=== PATIENT | male | born 1935 | race Caucasian/White ===

== ENCOUNTER 2017-06-15 10:06 | Inpatient (IN) | payer MEDICARE ==
[~2017-06-15] VITALS: Ht 167.6 cm; Wt 104.8 kg
[2017-06-15] MEDS ORDERED: AMLODIPINE5 MG PO (10:20)
[2017-06-15] MEDS ORDERED: ATENOLOL50 MG PO (10:21)
[2017-06-15] MEDS ORDERED: ASPIRIN81 MG PO (10:21)
[2017-06-15] MEDS ORDERED: FOLIC ACID1 MG PO (10:22)
[2017-06-15] MEDS ORDERED: FUROSEMIDE40 MG PO (10:22)
[2017-06-15] MEDS ORDERED: HYDRALAZINE25 MG PO (10:23)
[2017-06-15] MEDS ORDERED: PRAVASTATIN20 MG PO (10:24)
[2017-06-15] MEDS ORDERED: TERAZOSIN1 MG PO (10:24)
[2017-06-15] MEDS ORDERED: LEVOTHYROXIN50 MCG PO (10:24)
[2017-06-15] MEDS ORDERED: ATORVASTATIN CA40 MG PO (10:27)
[2017-06-15 11:18] LABS: HEMATOCRIT 47.4 % (39.0-50.0); HEMOGLOBIN 14.7 g/dl (14.0-18.0); IMMATURE GRANULOCYTES 0.3 % (0.0-1.0); MEAN CELL VOLUME 97.9 fL CALC (80.0-100.0); MEAN CORPUSCULAR HGB 30.4 pG CALC (26.0-32.0); NEUT# 13.84 thou/uL (1.82-7.42); RED BLOOD COUNT 4.84 mill/uL (4.70-6.10); RED CELL DISTRI WIDTH 15.2 % (11.5-15.5)
[2017-06-15 11:33] LABS: INTERNATIONAL NORMALIZED RATIO 1.2 RATIO (0.7-1.3); PROTHROMBIN TIME 13.4 SECONDS (9.0-12.5)
[2017-06-15 11:34] LABS: ALBUMIN 3.6 g/dL (3.2-5.0); BILIRUBIN, TOTAL 1.2 mg/dL (0.0-1.4); CALCIUM 8.9 mg/dL (8.4-10.2); CREATININE 1.4 mg/dL (0.7-1.3); POTASSIUM 4.1 mmol/l (3.5-5.1); TOTAL PROTEIN 6.8 g/dL (6.3-8.2)
[2017-06-15 13:04] LABS: URINE BILIRUBIN - DIPSTICK NEGATIVE (NEGATIVE); URINE BLOOD DIPSTICK NEGATIVE (NEGATIVE); URINE CLARITY CLEAR; URINE COLOR YELLOW; URINE GLUCOSE - DIPSTICK NEGATIVE (NEGATIVE); URINE KETONE NEGATIVE (NEGATIVE); URINE LEUK ESTERASE NEGATIVE (NEGATIVE); URINE NITRITE - DIPSTICK NEGATIVE (Negative); URINE PROTEIN - DIPSTICK NEGATIVE (NEG-TRACE); URINE SPECIFIC GRAVITY <=1.005; URINE UROBILINOGEN - DIPSTICK 0.2 E.U./dL (0.2)
[2017-06-15 15:00] VITALS: BP 136/57
[2017-06-15 19:36] VITALS: BP 127/54
[2017-06-15 21:14] VITALS: BP 141/56
[2017-06-15 23:30] VITALS: BP 128/56
[2017-06-16] VITALS (7 sets, daily range): BP systolic 113–160; BP diastolic 37–81
[2017-06-16 06:14] LABS: HEMATOCRIT 47.9 % (39.0-50.0); HEMOGLOBIN 14.5 g/dl (14.0-18.0); IMMATURE GRANULOCYTES 0.1 % (0.0-1.0); MEAN CELL VOLUME 99.2 fL CALC (80.0-100.0); MEAN CORPUSCULAR HGB CONC 30.3 g/L CALC (32.0-36.0); NEUT# 8.62 thou/uL (1.82-7.42); RED BLOOD COUNT 4.83 mill/uL (4.70-6.10); RED CELL DISTRI WIDTH 14.9 % (11.5-15.5)
[2017-06-16 06:42] LABS: CALCIUM 8.6 mg/dL (8.4-10.2); CREATININE 1.4 mg/dL (0.7-1.3); MAGNESIUM 2.3 mg/dL (1.6-2.3); POTASSIUM 4.6 mmol/l (3.5-5.1)
[2017-06-17 00:01] VITALS: BP 138/47
[2017-06-17 04:00] VITALS: BP 171/77
[2017-06-17 05:26] LABS: HEMOGLOBIN 15.4 g/dl (14.0-18.0); MEAN CELL VOLUME 97.7 fL CALC (80.0-100.0); MEAN CORPUSCULAR HGB 30.1 pG CALC (26.0-32.0); MEAN CORPUSCULAR HGB CONC 30.8 g/L CALC (32.0-36.0); RED BLOOD COUNT 5.12 mill/uL (4.70-6.10); RED CELL DISTRI WIDTH 14.3 % (11.5-15.5)
[2017-06-17 05:56] LABS: ANION GAP 17 (6-22 (CALC)); BUN 40 mg/dL (8-23); BUN/CREATININE RATIO 36 (12-20 (CALC)); CALCIUM 9.1 mg/dL (8.4-10.2); CARBON DIOXIDE 32 mmol/l (22-30); CHLORIDE 98 mmol/l (95-108); CREATININE 1.1 mg/dL (0.7-1.3); GFR > 60 ML/MIN (>=60 (CALC)); GFR FOR AFR.AMER. > 60 ML/MIN (>=60 (CALC)); GLUCOSE 145 mg/dL (82-115); MAGNESIUM 2.5 mg/dL (1.6-2.3); POTASSIUM 4.8 mmol/l (3.5-5.1); SODIUM 143 mmol/l (137-146)
[2017-06-17 08:00] VITALS: BP 151/52
[2017-06-17 12:00] VITALS: BP 144/53
== END 2017-06-17 17:40 | disposition short-term general hospital (02) | DRG 291 ==
LOC: ED 10:06 → ED-I 13:32 → ED 14:16 → ICU 14:17
PROVIDERS: Emergency Medicine; Internal Medicine; ADMIT Internal Medicine; ATTEND Internal Medicine
DX: I13.0 Hypertensive heart and chronic kidney disease with heart failure and stage 1 through stage 4 chronic kidney disease, or unspecified chronic kidney disease (principal); I50.33 Acute on chronic diastolic (congestive) heart failure; J96.21 Acute and chronic respiratory failure with hypoxia; J44.1 Chronic obstructive pulmonary disease with (acute) exacerbation; L03.115 Cellulitis of right lower limb; L03.116 Cellulitis of left lower limb; E66.01 Morbid (severe) obesity due to excess calories; L97.929 Non-pressure chronic ulcer of unspecified part of left lower leg with unspecified severity; I87.2 Venous insufficiency (chronic) (peripheral); E03.9 Hypothyroidism, unspecified; N18.9 Chronic kidney disease, unspecified; E78.5 Hyperlipidemia, unspecified; I35.0 Nonrheumatic aortic (valve) stenosis; M19.90 Unspecified osteoarthritis, unspecified site; Z99.81 Dependence on supplemental oxygen; Z87.891 Personal history of nicotine dependence; Z68.37 Body mass index [BMI] 37.0-37.9, adult
CPT/HCPCS: A9540; A9567